=== PATIENT | male | born 1940 | race Caucasian/White ===

== ENCOUNTER 2016-10-07 06:00 | Day surgery (SDC) | payer MEDICARE, OTHER ==
[~2016-10-07] VITALS: Ht 172.7 cm; Wt 78.2 kg
[2016-10-07] VITALS (9 sets, daily range): BP systolic 129–154; BP diastolic 66–83; PULSE 73–91; RESP 11–16; O2SAT 95–100
[~2016-10-07 06:00] MED LIST: Bupivacaine Liposome 1.3% 20 mL Inj INFILTRATE ONE; CeFAZolin Inj 2 GM in IV Premix 1 EACH IV ONE; NAPR220C11 PO; Vancomycin Inj 1,000 MG in IV Premix 1 EACH IV ONE
[2016-10-07] MEDS ORDERED: Propofol 10,000 mCg/mL 20 mL Inj ONE (06:01)
[2016-10-07] MEDS ORDERED: Ondansetron 2 mg/mL 2 mL Inj ONE (06:01)
[2016-10-07] MEDS ORDERED: fentaNYL-PF 50 mCg/mL 2 mL Inj ONE (06:01)
[2016-10-07] MEDS ORDERED: Lidocaine PF 1% 30 mL Inj ONE (06:01)
[2016-10-07] MEDS ORDERED: EPHEDrine/NS 5 mg/mL 5 mL Syringe ONE (06:01)
[2016-10-07] MEDS: Lactated Ringer's 1,000 ML IV SCH ×3 (06:34→09:52)
[2016-10-07] MEDS ORDERED: Lactated Ringer's 1,000 ML IV SCH (07:08)
[2016-10-07] MEDS ORDERED: Lactated Ringer's 500 ML IV PRN (07:08)
[2016-10-07] MEDS ORDERED: Dexamethasone 4 mg/mL Inj IVPUSH PRN (07:10)
[2016-10-07] MEDS ORDERED: Ondansetron 2 mg/mL 2 mL Inj IVPUSH PRN (07:10)
[2016-10-07] MEDS ORDERED: MetoCLOpramide 5 mg/mL 2 mL Inj IVPUSH PRN (07:10)
[2016-10-07] MEDS ORDERED: Atropine 0.4 mg/mL Inj IVPUSH PRN (07:10)
[2016-10-07] MEDS ORDERED: Phenylephrine 10,000 mCg/mL Inj IVPUSH PRN (07:10)
[2016-10-07] MEDS ORDERED: Labetalol 5 mg/mL 4 mL Inj IV PRN (07:10)
[2016-10-07] MEDS ORDERED: EPHEDrine Sulfate 50 mg/mL Inj IVPUSH PRN (07:10)
[2016-10-07] MEDS ORDERED: hydrALAZINE 20 mg/mL Inj IVPUSH PRN (07:10)
[2016-10-07] MEDS ORDERED: fentaNYL-PF 50 mCg/mL 2 mL Inj IVPUSH PRN (07:10)
--- NOTE | 2016-10-07 07:22 | PCM.HPANE ---
Patient Data Date of Service: Oct 07, 2016 Surgeon Admitting Provider: Attending Provider:Adama Solitario MD Primary Care Physician:Miles Other Provider:Jaron Aiken Anesthesia Reason for Visit Left Knee Arthritis Ht/WT & BMI Height (Feet): 5 Height (Inches): 8 Weight (Kilograms): 78.2 Body Mass Index 26.00 Allergies Coded Allergies: No Known Allergies (Unverified , 10/06/16) Past Anesthesia History Anesthesia History: Denies:: Anesthesia Reactions, Malignant Hyperthermia Diabetes History Hx Diabetes?: No MRSA MRSA: No Medications Home Meds Incl Beta Porsche: No Reported Medications Naproxen Sodium (Aleve)220 Mg [id number] Mg PO BID PRN prn 10/06/16 History History of ENT Problems?: No Hx of Heart Problems?: No Cardiovascular History: Denies:: Hypertension Hx of Respiratory Problem?: Yes Respiratory History: Positive for:: Use of C-PAP Machine (TRAY+- USES MOUTHGUARD & SLEEPS ON SIDE) Hx Neurologic Problems?: No Hx of GI Problems?: No Hx of Problems?: No Male Hx: Positive for:: Prostate Problems (BPH) Denies:: Scrotal Mass Testicular Surgery (HX HYPOGONADISM) Skin History: Positive for:: History Skin Disorders? (S/P EXC BASAL CELL CA) Denies:: Pressure Ulcers Hx Musculoskeletal Problems?: Yes Musculoskeletal History: Positive for:: Degenerative Joint Osteoarthritis (LT KNEE=CURRENT PROBLEM) Hx of Psycho/Social Problems?: No Hx Surgeries?: Yes (EXC BASAL CELL CA) Hx Any Other Health Problems?: Yes Other History: Positive for:: Cancer (BASAL CELL CA) Denies:: Endocrine Disease Hospitalization Thyroid Disease Hx Diabetes: No Have You Smoked inLast 12 mo: No Stop/Bang Treated for Sleep Apnea?: Yes Do You Have a CPAP Machine?: Yes S-Snoring: Do You Snore Loudly: Yes T-Tired: feel tired, fatigued: No O-Obsered: Observed not breath: Yes P-Blood Pressure: treated: No B- Body Mass Index > 35 kg/m2: No A- Age over 50: Yes N- Neck Large Circumference: No G- Gender Male: Yes TRAY Total Score: 4 TRAY Risk Assessment: High Risk, =/>3 Yes Risk Assessment Category Category 1A: Patient has history of documented sleep apnea, and HAS NOT received any narcotic, sedative or anesthesia administration during this stay. Category 1B: Patient has history of documented sleep apnea, and HAS received any narcotic , sedative or anesthesia administration during this stay Category 2: Patient has SUSPECTED Obstructive Sleep Apnea, and HAS received any narcotic , sedative or anesthesia administration during this stay. Category 3: Patient has SUSPECTED Obstructive Sleep Apnea and HAS NOT received narcotic, sedative or anesthesia administration during this stay. Category 4: Outpatient in Procedural Areas with known sleep apnea or who screen positive for High Risk via the STOP/BANG questionnaire. Exam Exam Vital Signs Vital Signs Date Time Temp Pulse Resp B/P Pulse Ox O2 Delivery O2 Flow Rate FiO2 10/07/16 06:17 36.6 73 16 129/73 98 Room Air General Appearance: Alert, Oriented X3, Cooperative HEENT/AIRWAY: MP 2, Neck Movement Lungs: Clear to Auscultation, Normal Air Movement Heart: Regular Rate/Rhythm, Normal S1, Normal S2 Meds/Labs/Diagnostics Admission Meds Current Medications Lactated Ringer's 1,000 ml @ 120 mls/hr Q8H20M IV Last administered on 06:34; Start 10/07/16 at 05:00; Stop 10/07/16 at 13:19 Vancomycin/0.9 % Sod Chloride/ Premix (Vancomycin Inj/ IV Premix) 200 ml @ 133.333 mls/hr PREOP ONCE IV Last administered on 10/07/16 06:33; Start at 06:00; Stop 10/07/16 at 07:29 Labs labs from 08/2016 reviewed Plan Impression Patient chart reviewed, patient interviewed and anesthestic plan with risks, benefits, and alternatives discussed, and informed consent obtained. NPO Status: MN ASA Physical Status: ASA2 Mod Systemic Disease Anesthetic Plan: GA Bene/Risks/Altern/Consents: Yes HP Complete Prior to Induction: Yes Fredi Bae MD Oct 07, 2016 06:55
[2016-10-07] MEDS ORDERED: Bupivacaine-MPF 0.25%/EPI 30 mL Inj INJ ONE (08:09)
[2016-10-07] MEDS ORDERED: Gentamicin 40 mg/mL 2 mL Inj IRRIGATION ONE (08:09)
[2016-10-07] MEDS ORDERED: Bupivacaine Liposome 1.3% 20 mL Inj INFILTRATE ONE (08:09)
[2016-10-07] MEDS: HYDROmorphone 1 mg/mL Inj IVPUSH PRN ×2 (09:30→09:34)
--- NOTE | 2016-10-07 09:33 | PCM.ANEP1 ---
Post Anesthesia Phase 1 PACU Phase 1 Assessment Date of Service: Oct 07, 2016 Vital Signs Vital Signs Date Time Temp Pulse Resp B/P Pulse Ox O2 Delivery O2 Flow Rate FiO2 10/07/16 09:20 36.0 131/66 10/07/16 06:17 36.6 73 16 129/73 98 Room Air Anesthetic Administered: GA EDMONDS's with Equal Strength: Yes Pain: No Nausea or Vomiting: No Oxygen Delivery: Simple Mask Lungs: Normal Air Movement Fredi Bae MD Oct 07, 2016 09:33
--- NOTE | 2016-10-07 10:27 | DRSVH ---
PROCEDURE: X-RAY LEFT KNEE, ONE OR TWO VIEWS ([id number]) INDICATIONS: POST OPERATIVE TECHNIQUE: 2 view(s) of the knee acquired. COMPARISON: None. FINDINGS: Bones: Patient is status post knee joint arthroplasty. Hardware components are in expected position s. Visualized bony structures are intact. Soft tissues: Overlying postoperative changes are noted. IMPRESSION: Medial unicompartmental hemiarthroplasty, immediate postoperative examination, normal ali gnment. Surgical drain overlies the operative bed. Dictated by: Lance Forte M.D. on 10/07/2016 at 10:18 Approved by: Lance Forte M.D. on 10/07/2016 at 10:26
--- NOTE | 2016-10-07 10:45 | PCM.ANEP2 ---
Post Anesthesia Evaluation ASA/CMS Post Anesthesia Date of Service: Oct 07, 2016 VS in Patient's Normal Range?: Yes Resp Stable; Airway Patent?: Yes CV Function & Hydration Stable: Yes Mental Status Recovered?: Yes Pain control Satisfactory?: Yes N/V Control Satisfactory?: Yes Fredi Bae MD Oct 07, 2016 10:45
--- NOTE | 2016-10-08 07:32 | OP ---
[address] [address] OPERATIVE REPORT PATIENT: BINA JOYCE : 1940 MR#: [id number] ADMIT: 10/07/2016 JOB ID: [id number] DATE OF SURGERY: 10/07/2016 SURGEON: Adama Solitario MD INDUSTRIAL ELECTRICAL TECHNICIAN: Chiquita Hernández PA-C. Oil Well Driller required due to the major complexity of the operation. PREOPERATIVE DIAGNOSIS(ES): Advanced medial compartment osteoarthritis, left knee. POSTOPERATIVE DIAGNOSIS(ES): Advanced medial compartment osteoarthritis, left knee. PROCEDURE: Unicompartmental knee arthroplasty. INDICATIONS: This gentleman has failed conservative treatment, has disabling pain, and elects to proceed. He understands the potential for infection, thromboembolic/neurovascular events, as well as the potential for progressive arthritis in unresurfaced compartments and implant failure. The warehouse administrative assistant was required due to the major complexity of the operation. DESCRIPTION OF PROCEDURE: The patient was prepped and draped in the usual sterile fashion. An anteromedial approach was made to the knee. Dissection was carried down. Patellar osteophyte was removed. A tibial guide was assembled. Corner pin placed. After appropriate depth of the cut was assessed, the anterior third of the medial meniscus had been excised. Sagittal and oscillating saw cuts were made down to the pin height and the fragment was removed. The knee was assessed and noted to be too tight and the recutting block was utilized to make a recut. The bone fragment was removed and the knee could now be assessed with a 9 mm spacer block which was utilized to make a distal femoral cut. The wounds were irrigated with sterile irrigant. The femur was sized to a five femoral chamfer cutting block, which was fixed in appropriate position and rotation. Drill holes and chamfer cuts were made. The bone fragments were removed. The tibia was sized to J tibial component. Trial reduction was performed. A 9 mm poly produced excellent alignment and soft tissue tension. All meniscal tissue and osteophytes were removed. Pressurized lavage was performed, followed by pressurized cementation. Excess cement was removed during the curing process and the final construct was assembled. A deep Hemovac drain was left. Deep fascia was closed with number #2 Quill deep followed by 2-0 Vicryl, 3-0, and a 4-0 intracuticular stitch. Standard postoperative course recommended.
== END 2016-10-07 23:59 | disposition home or self-care (01) ==
LOC: SAS 06:00
PROVIDERS: ATTEND Orthopaedic Surgery
DX: M17.12 Unilateral primary osteoarthritis, left knee (principal); M19.90 Unspecified osteoarthritis, unspecified site; G47.33 Obstructive sleep apnea (adult) (pediatric); N40.0 Benign prostatic hyperplasia without lower urinary tract symptoms; Z85.9 Personal history of malignant neoplasm, unspecified
CPT/HCPCS: 27446; 73560; C1713; C1776; J0690; J1170; J1580; J2250; J2405; J3010; J3370; J7120